=== PATIENT | male | born 1980 | race Caucasian/White ===

== ENCOUNTER 2017-08-12 18:38 | Emergency (ER) | payer BC, MEDICAID ==
[2017-08-12 18:53] VITALS: BP 139/77
[2017-08-12] MEDS ORDERED: PENICILLIN VK 250 MG TABLET PO STA (19:39)
[2017-08-12] MEDS ORDERED: HYDROcod/ACETAM 5/325 MG TABLET PO STA (19:39)
--- NOTE | 2017-08-12 19:41 | ED Physician Documentation ---
History of Present Illness - Stated complaint Stated Complaint: TOOTH PX - Chief complaint Chief Complaint: Heent - History obtained from History obtained from: Patient - History of Present Illness Timing: How many days ago (several) Pain level max: 10 Pain level now: 10 Improved by: nothing Worsened by: eating - Additonal information Additional information: states swelling, pain to L lower molar for several days. Has dentist appt in 2 days. increased pain tonight. Review of Systems Constitutional: denies: Fever, Chills Respiratory: denies: Cough GI: denies: Vomiting Skin: denies: Rash PD PAST MEDICAL HISTORY - Past Medical History Past Medical History: No - Past Surgical History Past Surgical History: No - Present Medications Home Medications: Ambulatory Orders Medication Instructions Recorded Confirmed Hydrocodone/Acetaminophen 1 - 2 each PO Q6H PRN #8 tablet 08/12/17 [Hydrocodon-Acetaminophen 5-325] Penicillin V Potassium 500 mg PO Q6HR #40 tablet 08/12/17 - Allergies Allergies/Adverse Reactions: Allergies Allergy/AdvReac Type Severity Reaction Status Date / Time No Known Drug Allergies Allergy Verified 08/12/17 18:53 - Social History Does the pt smoke?: Yes Smoking Status: Current every day smoker Does the pt drink ETOH?: No Does the pt have substance abuse?: No - Immunizations Immunizations are current?: Yes - POLST Patient has POLST: No PD ED PE NORMAL - Vitals Vital signs reviewed: Yes - General General: Alert and oriented X 3, No acute distress - HEENT HEENT: Moist mucous membranes - Neck Neck: Supple, no meningeal sign, No adenopathy - Cardiac Cardiac: RRR, No murmur - Respiratory Respiratory: No respiratory distress, Clear bilaterally - Derm Derm: Warm and dry - Neuro Neuro: Alert and oriented X 3 PD ED PE EXPANDED - HEENT HEENT Visual: 1 - tenderness (no gingival swelling or abscess. No ludwigs angina.) Results - Vitals Vitals: Vital Signs - 24 hr 08/12/17 18:51 Temperature 36.6 C Heart Rate 80 Respiratory 16 Rate Blood Pressure 139/77 H O2 Saturation 97 Oxygen O2 Source Room air PD MEDICAL DECISION MAKING - ED course Complexity details: considered differential, d/w patient ED course: Patient is a 36-year-old male who presents to the emergency department with dental pain. Will place on antibiotics and pain medication for home. Has a dental appointment in 2 days. No facial cellulitis. No trismus. No drainable abscess. Patient counseled regarding signs and symptoms for which I believe and urgent re-evaluation would be necessary. Patient with good understanding of and agreement to plan and is comfortable going home at this time This document was made in part using voice recognition software. While efforts are made to proofread this document, sound alike and grammatical errors may occur. Departure - Departure Disposition: 01 Home, Self Care Clinical Impression: Pain due to dental caries Condition: Good Instructions: ED Tooth Pain Follow-Up: your,dentist in 2 days [Other] Prescriptions: Penicillin V Potassium 500 mg PO Q6HR #40 tablet Hydrocodone/Acetaminophen [Hydrocodon-Acetaminophen 5-325] 1 - 2 each PO Q6H PRN #8 tablet PRN Reason: pain Comments: Take all antibiotics until gone. Return if you worsen. Discharge Date/Time: 08/12/17 19:47
== END 2017-08-12 19:47 | disposition home or self-care (01) ==
LOC: ED 18:38
DX: K02.9 Dental caries, unspecified (principal); K08.89 Other specified disorders of teeth and supporting structures; F17.200 Nicotine dependence, unspecified, uncomplicated
CPT/HCPCS: 99283; A9270